=== PATIENT | male | born 2005 | race African-American/Black ===

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

== ENCOUNTER 2024-08-17 13:20 | Emergency (ER) | payer OTHER, SELFPAY ==
--- OUTSIDE RECORDS SUMMARY | 2024-08-17 13:23 | XMS_ITS | Continuity of Care Document ---
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 It does not include entries that were removed or entered in error. Problem Status Onset Date Problem Type Date of Resolution Comments Source No Known Problems Active Condition 5C-375 [facility] Medications Combined list of outpatient medications from Department of Defense and Veterans Affairs facilities.Medications provided include 1) outpatient medications from the last 15 months, and 2) patient-reported medications. Medication Details Route Status Patient Instructions Prescription Expires Prescription Number Last Dispense Date Ordering Provider Order Date Order Qty Source No Known Medications No Known Medicati ons complet ed 8224R-1 26 [facility] Immunizations Combined list of available immunizations from the Department of Defense and Veterans Affairs facilities. Immunization Series Date Given Administered By Site Reaction Lot Number CVX Code Drug Academic Program Specialist Status Comments Source varicella virus vaccine 2023 LUIS EZ Arm, left upper [id number] 21 [employer] Inc complet ed varicella virus vaccine 05/26/23 Given 0117A-A F-ASU-5 9 [facility] [place] varicella virus vaccine 2023 BERNARDA Hopkins t Arm [id number] 21 [employer] complet ed varicella virus vaccine 04/14/23 Given 0117A-A F-ASU-5 [facility] [place] poliovirus vaccine, inactivated 2023 DONALDBCOBB Shoul emery, right (delt oid) [id number] 10 sanofi pasteur complet ed polioviru s vaccine, inactivat ed 04/10/23 Given 0117A-A F-ASU-5 9 [facility] [place] tetanus, diphtheria, acellular pertu is 2023 DONALDBCOBB Shoul emery, right (delt oid) [id number] [employer] complet ed tetanus, diphtheri a, acellular pertussis 04/10/23 Given 0117A-A F-ASU-5 [facility] [place] meningococcal conjugate vaccine 2023 DONALDBCOBB Shoul emery, left (delt oid) [id number] GlaxoSmithK[employer] ne complet ed meningoco ccal conjugate vaccine 04/10/23 Given 0117A-A F-ASU-5 [facility] [place] influenza virus vaccine, inactivated 2023 DONALDBCOBB Shoul emery, left (delt oid) [id number] 150 [employer], A [employer] complet ed influenza virus vaccine, inactivat ed 04/10/23 Given 0117A-A F-ASU-5 [facility] [place] [facility] adenovirus vaccine, live 2023 DONALDBCOBB [id number] 143 [employer]eva [employer] [facility] complet ed adenoviru s vaccine, live 04/10/23 Given 0117A-A F-ASU-5 [facility] [place] [facility] influenza, seasonal, injectable 2013 REINHOLDTHERB OTH [id number] complet ed Result Comment: Route: Intramusc ular Manufactu rer: Novartis Pharmaceu tical Jim 0117A-A F-ASU-5 [facility] [place] [facility] Results Combined list of recent chemistry, hematology and other laboratory results from Department of Defense and Veterans Affairs, ranging from 15 months to all on record, depending upon the facility. Order Name Results Value Reference Range Date Interpretation Specimen Comments Source Blood Bank ABO/Rh Type O POS 04/10 0117A-A F-ASU-5 [facility] [place] Immunolog y/Serolog y Hep A Ab Positive 3 *ABN* (04/09/23 3:46 PM) 04/09 A Interpretiv e Data: 20 FEB 2017 Notice: Samples for thes asssay should not be taken from patients receiving therapy with high biotin doses (i.e. > 5 mg/day) until 8 hours following last biotin administrat ion. POSITIVE: Indicates prior or acute infection, or immunizatio n to Hepatitis A. NEGATIVE: Indicates susceptibil ity to Hepatitis A infection. Updated Test Method [id number]. 0117A-A F-ASU-5 9 [facility] Immunolog y/Serolog y Hep B Surface Ab Positive 2 *ABN* (04/09/23 3:46 PM) 04/09 A Interpretiv e Data: EXPECTED RANGE: Negative unless previous exposure or Heptavax prophylaxis A POSITIVE Anti-HBs indicates previous exposure to the virus or acquired immunity through Heptavax prophylaxis . An INDETERMINA TE result should be further accessed by associated risk factors and the use of additional diagnostic information , or another sample may be collected and tested. 0117A-A F-ASU-5 [facility] Immunolog y/Serolog y Mumps IgG Antibody Immune 8 (04/09/23 3:46 PM) 04/09 N Interpretiv e Data: Interpretiv e Data: Expected Results: Immune or Non-Immune A definitive diagnosis should not be based on the results of a single diagnostic method but should only be made by the physician after all clinical and laboratory findings have been evaluated. Methodology : multiplex flow immunoassay 7A-A F-ASU-5 [facility] Immunolog y/Serolog y Rubeola IgG Antibody Immune 7 (04/09/23 3:46 PM) 04/09 N Interpretiv e Data: Interpretiv e Data: Expected Results: Immune or Non-Immune A definitive diagnosis should not be based on the results of a single diagnostic method but should only be made by the physician after all clinical and laboratory findings have been evaluated. Methodology : multiplex flow immunoassay 7A-A F-ASU-5 [facility] Immunolog y/Serolog y VZV IgG Scrn Non-Immu ne 1 *ABN* (04/09/23 3:46 PM) 04/09 A Interpretiv e Data: Interpretiv e Data: Expected Results: Immune or Non-Immune A definitive diagnosis should not be based on the results of a single diagnostic method but should only be made by the physician after all clinical and laboratory findings have been evaluated. Methodology : multiplex flow immunoassay 0117A-A F-ASU-5 [facility] Immunolog y/Serolog y Rubella IgG Antibody Immune 9 (04/09/23 3:46 PM) 04/09 N Interpretiv e Data: Interpretiv e Data: Expected Results: Immune or Non-Immune A definitive diagnosis should not be based on the results of a single diagnostic method but should only be made by the physician after all clinical and laboratory findings have been evaluated. Methodology : multiplex flow immunoassay 0117A-A F-ASU-5 9th [facility] Infectiou s Disease HIV-1/O/2 Non-Reac tive 6 (04/09/23 3:46 PM) 04/09 N Interpretiv e Data: INTERPRETAT ION: This method is a screening procedure for the detection of HIV p24 Antigen and Antibodies to HIV-1, including Group O, and/or HIV-2. NON-REACTIV E: HIV-1 antigen and HIV-1 / HIV-2 antibodies were not detected. No laboratory evidence of HIV infection. A negative test result does not exclude the possibility of exposure to or infection with HIV. HIV antibodies and/or p24 antigen may be undetectabl e in some stages of the infection and in some clinical conditions. If acute HIV infection is suspected, consider submitting another specimen to a reference laboratory for HIV-1 RNA. SCREEN REACTIVE - CONFIRMATIO N TO FOLLOW: Possible presence of HIV-1antibo dies, HIV-2 antibodies and/or HIV-1 p24 antigen. Specimen will reflex to the confirmatio n testing that fulfills the Center for Disease Control and Prevention' s HIV diagnostic algorithm. Refer to [facility] Lab Guide for additional information : [email or web address]/ [email or web address] x Testing performed by [employer] [facility]. 5600A-U [facility] Hematolog y Sickle Cell Screen Negative 4 *NA* (04/09/23 3:46 PM) 04/09 Interpretiv e Data: Expected Normal Range is Negative. Testing was performed using reagent manufacture d for manual Sickle Cell testing on the Neft[employer] Platform. This test was developed and its performance characteris tics determined by [facility]. It has not been cleared or approved by the FDA. The laboratory is regulated under CLIA as qualified to perform high complexity testing. This test is used for clinical purposes. It should not be regarded as investigati onal or for research. Confirmatio n of all positive results are followed by Hemoglobin Electrophor esis. 0117A-A F-ASU-5 9th [facility] Vannacellkatie eous Sendouts DNA Sample Collected? Yes (04/09/23 3:46 PM) 04/09 N 0117A-A F-ASU-5 9th [facility] Chemistry G6PD 11.3 unit/gHb 04/09 N Interpretiv e Data: All persons below our lower limit of 7 are considered Deficient .G6PD reported value is a calculation based on G6PD and hemoglobin values. Values greater than the upper limit of our reference range are considered Normal in accordance with guidance from the Ramsey Textbook on Clinical Chemistry, which states that values greater than the upper limit of the reference range are encountered in any condition associated with younger than normal RBC's (as in hemolytic anemias not due to G6PD deficiency) , but are of no clinical significanc e. Certain drugs and other substances are known to influence circulating levels of G6PD. Reticulocyt es havehigher G6PD levels than mature erythrocyte s, so samples should not be collected after a severe hemolytic crisis. Copper completely inhibits G6PD at a concentrati on of 100 umol/L, and sulfate ions (0.005 mol/L) decrease observed levels of G6PD activity. This test was developed and its performance characteris tics evaluated by [facility] Reference Chemistry Laboratory. It has not been cleared or approved by the U.S. Food Drug Administrat ion (FDA). FDA does not require this test to go through premarket FDA review.The test isused for clinical purposes and should not be regarded as investigati onal or for research. This laboratory is certified under the Clinical Laboratory Improvement Amendments of 1988 (CLIA) as qualified to perform high complexity clinical laboratory testing. 0109A-A [facility] Miscellan eous Sendouts Repository Sample Received (04/09/23 3:46 PM) 04/09 N 5600A-U [facility] Vital Signs Combined list of inpatient and outpatient Vital Signs from Department of Defense and Veterans Affairs, ranging from 12 months to all on record, depending upon the facility. Vital Sign Value Date Comments Source Peripheral Pulse Rate 60 bpm 08/14/2022 13:25:[address] [place] [address] Peripheral Pulse Rate 52 bpm 08/14/2022 11:16:[address] [place] [address] Systolic Blood Pressure 125 mm[Hg] 08/14/2022 11:16:[address] [place] [address] Diastolic Blood Pressure 64 mm[Hg] 08/14/2022 11:16:[address] [place] [address] Encounters Combined list of: 1) Encounters from [facility] facilities going backup to the last 18 months, not all [place] inpatient encounters are included; 2) Encounters from the [facility] facilities going backup to 280 months. Location Location Details Encounter Type Encounter Number Reason For Visit Attending Provider ADM Date DC Date Status Disposition Source 8224R-126 [facility] [id number] RENÉE CAMARGO 09/14 Discharge Disposition: Home or Self Care 8224R-1 26 [facility] 0055C-375 [facility] [id number] ABEL KEY 09/15 Discharge Disposition: Home or Self Care 0055C-3 [facility] Procedures Combined list of: 1) Procedures from [facility] facilities going back up to thelast 18 months, not all [place] non-surgical procedures are included; 2) All procedures from the [facility] facilities. Procedure Procedure Type Code Date Perfomer Comments Sourc e No data available for this section Ambulatory P harmacy Social History Combined list of available smoking, tobacco, and other social history from [facility] and [facility] facilities. Social History Type Response Date Comment Sourc e Sexual Orientation Ambula tory Pharmacy Gender identity Ambulator y Pharmacy Sex Representation Male (finding) Un known Organization Assessment and Plan Combined list of future care activities from [facility] and [facility] facilities (e.g., assessment and plan notes, appointments, orders, and referrals). Additional future care activities may be listed in the Plan of Care section. 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 Patient s PHAQ responses suggest there WERE NO Priority items requiring immediate action. Retention Waiver: No Profile: No Medications: Medication List Active Medications No Active Medications Found Medications Inactivated in the Last 72 Hours No medications found. 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 NO Completed 09/15/2023 VA Disability Rating: No If yes please update below. Commercial Correspondent Note: Member reports that he is in very good health with no pain , no medications and ne new history to repot. 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 Member has nothing more to report. Report complete. PHAQ ready for PCM review and signature. Addendum by RENÉE GOOD on September 15, 2023 14:09 CDT PHAQ Completed in [facility], [id number] c opied below. Diagnosis is [id number] Medication reconciliation was accomplished. IMR requirements checked in [facility] (all GREEN) but is due dental General c sandro performed i n chart review. Denies SI/HI. All questions answered. Member has no n on emergent positive responses on P BEE. I t has not inhibited member from performing their duties. Member is assumed fit for duty. Denies any other acute or chronic health concerns currently. 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 Recommend f/u with PCM for any new or ongoing m edical concerns. Member can: 1) deploy 2) perform the duties of the assigned [employer], 3) meet retention medical standards, 4) complete the fitness assessment (FA), no h/o airborne exposure to qualify for X08.8 COPY OF PHAQ2 [id number]: A NNUAL PERIODIC HEALTH ASSESSMENT I. 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 Last Name: DAVID 2. First Name: CLARISSA 3. Middle Name: RENÉE 4. Assessment Date: 5. : 6. Age: 18 7. Gender: M 8. [employer] ID Number: [id number] 9. Service Branch: [employer] 10. 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 Unit Name: [address] [employer] 14. Duty Station/Location: [place] 15. C: [id number] 16. Is this your first Periodic Health Assessment (PHA)?: Y 17. Are you enrolled in a secure messaging system with your health care provider?: 18. Current contact information: Preferred Method: DSN Phone DSN: [id number] Day Time Phone: [phone] Night Time Phone: [phone] Email 1: [email or web address] Email 2: [email or web address] Address: [address] [place] [address] City: [place] State: [place] Zip Code: [address] 19. Point of contact who can always reach you: Name: Wilbert Kamara Phone 1: [phone] Phone 2: EMAIL: Address: [address] [place] [address] City: [place] State: [place] Zip Code: [address] II. DEPLOYMENT INFORMATION (DEP) 1. [ 0 ] Total number of deployments in the PAST 5 YEARS 4. [ N ] Are you going to deploy within the NEXT 120 DAYS? III. 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 [ No ] Does your specialty require an operational duty physical exam? 4. [ No ] Are you currently enrolled in a medical surveillance/occupational health program?: No IV. MEDICAL CONDITIONS (CARLY): 1. Since your last PHA, have you experienced any of the following health conditions, and if so, what is your status? [ ] Conditions with no medical care [ Asthma ] Conditions with medical care, but no longer under treatment [ ] Conditions with medical care, and NOW under treatment 2. Since your last PHA, have you experienced any of the following health conditions, and if so, what is your status? [ ] Conditions with no medical care [ ] Conditions with medical care, but no longer under treatment [ ] Conditions with medical care, and NOW under treatment 3. For any condition marked YES in question 1 or 2, are you currently on any profile or limited duty for that condition? [ ] Conditions 4. [ No ] Have you been based or stationed at a location where an open burn pit was used? 5. [ No ] Have you been exposed to toxic airborne chemicals or other airborne contaminants? 8. Have you had any surgery since your last PHA?: No 10.a. [ No ] Since your last PHA, has a health care provider recommended surgery(s) that you have not had? 11.a. [ No ] Do you currently require hearing aids, special medical supplies, CPAP, adaptive equipment, assistive technology devices, and/or other special accommodations? 12.a. [ No ] Do you have a waiver or profile for any part of your Service's physical fitness test? 13.a. [ No ] Do you have any problems wearing a gas mask, ballistic helmet, body armor, and/or chemical/biological protective garments? 14.a. [ No ] Have you ever been told by a health care provider that you SHOULD NOT receive an immunization for medical reasons? 15.a. [ No ] Do you have a permanent profile or an Assignment Limitation Code C? 16.a. [ No ] Are you on a temporary profile or limited duty? 17. [ 0 ] During the PAST 2 years, how many times have you been placed on a temporary profile or on limited duty? V. INDIVIDUAL MEDICAL READINESS (IMR) 1. [ No ] Do you have any allergies? 3. [ Not required ] Do you have red medical warning dog tags? 4. [ No ] Do you wear corrective lenses? . BEHAVIORAL HEALTH (MHA) 1. a. [ None ] Over the PAST MONTH, what major life stressors have you experienced that are a cause of significant concern or make it difficult for you to do your work, take care of things at home, or get along with other people (for example, serious conflicts with others, relationship problems, or a legal, disciplinary or financial problem)? 2. a. [ No ] In the PAST YEAR did you receive care for any mental health condition or concern such as, but not limited to post traumatic stress disorder (PTSD), depression, anxiety disorder, alcohol abuse or substance abuse? 3. [ None ] What prescription or over-the counter medications (including herbals/supplements) for sleep, pain, combat stress, or a mental health problem are you CURRENTLY taking? 4. a. [ No ] In the past 12 months, have you gambled? 5. a. [ Never ] How often do you have a drink containing alcohol? 6. Have you ever had any experience that was so frightening, horrible, or upsetting that in the PAST MONTH, you: 6. a. [ No ] Have had nightmares about it or thought about it when you did not want to? 6. b. [ No ] Tried hard not to think about it or went out of your way to avoid situations that remind you of it? 6. c. [ No ] Were constantly on guard, watchful or easily startled? 6. d. [ No ] [place] numb or detached from others, activities, or your surroundings? 6. e. [ Not answered ] [place] guilt or unable to stop blaming yourself or others for the event(s) or any problems the event(s) may have caused? 7. Over the LAST 2 WEEKS, how often have you been bothered by the following problems? 7. a. [ Not at all ] Little interest or pleasure in doing things 7. b. [ Not at all ] Feeling down, depressed, or hopeless 8. [ No ] Would you like to schedule an appointment with a health care provider to discuss any health concern(s)? 9. [ No ] Are you interested in receiving information or assistance for a stress, emotional or alcohol concern? 10. [ No ] Are you interested in receiving assistance for a family or relationship concern? 11. [ No ] Would you like to schedule a visit with a cytology supervisor, mental health care provider, or a community support counselor? VII. FAMILY HISTORY AND LIFESTYLE (LIF) 1. [ Excellent ] Overall, how would you rate your health during the PAST MONTH? 2. [ None/Don't Know ] Member indicates that family members have the following problems 6. [ Yes ] I participate in moderate intensity physical activites at least 2.5 hours, or a combination of moderate and vigorous aerobic activites, for at least 75 minutes per week. 7. In a typical week, I do physical activities specifically designed to STRENGTHEN my muscles: [ 6 ] Day(s) per week 8. [ None ] What prescriptions or afqz-slq-wqizfnj medications are you CURRENTLY taking for health problems on a ROUTINE BASIS? 9. Which of the following products have you taken since your last PHA: Protein Supplements/Creatine: Once a day Performance Enhancers/Pre-Workout Products: Once a day Energy Shots, NOT including energy drinks: Less than once a month Multi-Vitamins: Once a day Individual Vitamins or Minerals: Once a day Vitamin D: Less than once a month 11. Think about the PAST 30 DAYS. How often did you eat/drink the following foods/beverages? [ 1 serving per day ] Fruits [ 1 serving per day ] Vegetables [ 1 serving per day ] Starchy Vegetables [ 3 or more servings per day ] Whole Grains [ 3 or more servings per day ] Dairy and Calcium Containing Foods [ 3 to 6 servings per week ] Fish [ 3 or more servings per day ] Lean Protein [ 1 serving per day ] Sugar-Sweetened Beverages 12. [ Yes ] Have you had a cholesterol check by a health healthcare advisory services manager within the PAST 5 YEARS? 13.a. In the PAST 30 DAYS, which of the following products have you used on at least one day? None 15. Which of the following best describes your past tobacco use? I have never used tobacco products. 16. [ No ] Are you regularly exposed to secondhand smoke? 17. [ 7 to 9 hours ] During the LAST 2 WEEKS, how many hours of sleep did you get on most days? 18. [ No ] During the LAST 2 WEEKS, have you felt impaired or unable to adequately perform due to sleepiness or poor quality sleep? 19. [ No ] Have you had any unexplained weight loss or gain since your last PHA? 20. Member is at risk for sexually transmitted infections. 21. [ No ] Have you had a syphillis, chlamydia, and gonorrhea test since your last PHA? 22. Since your last PHA, what, if anything, have you and your partner used to keep from getting ? [ control pills, Emergency contraception, Condoms, Withdrawal ] I am actively taking steps to prevent , including 23. [ No ] In the last year, have you or your partner had a scare, where you were not trying to get but were worried enough to use a home test? IX. RESERVE COMPONENT (RES) 1. [ No ] Do you have an injury, illness, Or disease which was incurred or aggravated while in a duty status since your last PHA? 4. [ Yes - and Other health insurance ] Are you currently coverered under a health insurance policy? 5.a. [No, I have never applied for Worker's Compensation ] Do you have any current physical or mental health limitations related to a Worker's Compensation claim? 6. [ No ] Have you applied for or have you received a VA disability rating? X. OTHER MEDICAL (OTH) 1. [ 0 ] Rate the amount of pain you have had, on average, over the PAST 24 HOURS 3. [ No ] Since your last PHA, have you received care or treatment for any medical and/or mental health condition(s) from a civilian or non- facility? 5. Member acknowledged responsibility for reporting health issues. 7. [ No ] Woud you like to schedule an appointment with a health care provider to discuss any health concerns? XI. SEPARATION AND [facility] 1. 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 PART B. RECORD REVIEW AND RECOMMENDATIONS I. RECORD REVIEWER INFORMATION 1. Last Name: RANDA 2. First Name: SCOTTY 3. Middle Name: KARI 4. Service Branch: [employer] 5. 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 EMAIL: [email or web address] 8. Facility: [address] [facility] 9. Unit: [address] [facility] 10. Address: [address] [facility] 11. State: [place] 12. Zip Code: [address] 13. 14. Date Record Review: II. MEDICAL SCREENING 1. 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 [ 6 feet 1 inches Date: ] multiple launch rocket system crewmember's most recently documented height 3. [ 215 pounds Date: ] multiple launch rocket system crewmember's most recently documented weight 4. [ 125/64 Date: ] multiple launch rocket system crewmember's most recently documented blood pressure reading 5. [ No ] Does the multiple launch rocket system crewmember have a history of abnormal blood pressure since their last PHA? 6. [ Yes ] Does the multiple launch rocket system crewmember have a laboratory test of sickle cell trait documented in their permanent medical record? 7. [ No Cholesterol Test Documented ] What is the date of the multiple launch rocket system crewmember's most recently documented cholesterol test? 9. 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 [ No ] Is there a discrepancy between the active medication record review and the multiple launch rocket system crewmember's self-reported list of medications? 11. [ No Outside Care Documented ] List documented significant care the multiple launch rocket system crewmember has received since their last PHA from a provider OUTSIDE the Health System 12. [ No ] Is there a discrepancy between the multiple launch rocket system crewmember's list of OUTSIDE care (from OT5), and the OUTSIDE care found in the record? 13. [ No Inside Care Documented ] List documented significant care the multiple launch rocket system crewmember has received since their last PHA from a provider INSIDE the Health System 15. [ Not Answered ] Confirm that vaccine exemptions are listed in the medical record for each vaccine listed IV. FAMILY HISTORY AND LIFESTYLE 1. [ Yes ] Does the [id number] reflect the multiple launch rocket system crewmember's reported family history? 2. [ No ] Is there a record of the multiple launch rocket system crewmember receiving a syphillis, chlamydia and gonorrhea test since their last PHA? VII. INDIVIDUAL MEDICAL READINESS 1. [ No ] Does the multiple launch rocket system crewmember have an Assignment Limitation Code C? 3. [ No Dental Exam Documented ] Most recently documented dental exam 4. [ Yes ] Is the multiple launch rocket system crewmember current on all required immunizations in the immunization tracking system? 6. Does the multiple launch rocket system crewmember have the following laboratory tests documented in their permanent medical record? [ Yes ] HIV test within the PAST 24 months [ Yes ] G6PD results on file [ Yes ] Blood type and Rh on file [ Yes ] DNA test on file IX. ADDITIONAL RECORD REVIEWER COMMENTS 1. This record review does NOT have a need for provider notification or referral.2. Additional comments about this record review that need to be forwarded to the Health Chiller Operator completing PART C: Member reports that he is in very good health with no pain , no medications and ne new history to repot. 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 Member has nothing more to report. Report complete. Date Record Review Completed: PART C. HEALTH CARE PROVIDER I. MENTAL HEALTH ASSESSMENT (MHA) PROVIDER INFORMATION 1. Last Name: SHANNON 2. First Name: SATURNINO 3. Middle Name: Jodi 4. 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 EMAIL: [email or web address] 8. Facility: [facility] 9. Unit: [facility] 10. Address: [address] [place] [address]. State: [place] 12. Zip Code: [address] 13. 14. Date HCP Review initiated: 1. Member marked that they did not have a concern or a difficulty with a major life stressor. 2. Address concerns identified on member questions 2 and 3. History of mental health care: N/A Member's response: Provider's comments: Medications: N/A Member's response: Provider's comments: 3. Member's AUDIT-C screening score was 0. (nothing required) 4. Member did not fernando yes on two or more of questions 6a through 6e. 5. Member did not fernando More than half the days or nearly every day on question 7a or 7b. 6. Suicide risk evaluation. 6. a. Ask: Over the past month, have you wished you were or wished you could go to sleep and not wake up?: No 6. b. Ask: Have you actually had any thoughts of killing yourself?: No 6. f. 1. Ask: In you lifetime, have you done anything, started to do anything, or prepared to do anything to end your life?: No 6. g. Further risk assessment comments: 7. Member states that they have not had thoughts or concerns over the past month that they might hurt or lose control with someone. 9. Summary of Provider's identified concerns needing referrals: None 11. Comments: 13. Supplemental services recommended/information provided: [facility] Date A Certified: III. PERIODIC HEALTH ASSESSMENT (PHA) PROVIDER INFORMATION 1. Last Name: LATISHA 2. First Name: RENÉE 3. Middle Name: Darion 4. Service Branch: [employer] 5. Status: [facility] 6. Title: Physician (DO MARGO) 7. EMAIL: [email or web address] 8. Facility: [address] [facility] 9. Unit: [address] [facility] 10. Address: [address] [place] [address] 11. State: [place] 12. Zip Code: [address] 13. Phone: [phone] 14. Date HCP Review initiated: IV. PERIODIC HEALTH ASSESSMENT PROVIDER RECOMMENDATIONS and REFERRALS 1. Provider concerns with this assessment: No issues or concerns identified V. SUMMARY AND COMMENTS 1. Additional information summarizing findings during the multiple launch rocket system crewmember assessment: 2. Provider Comments: . INDIVIDUAL MEDICAL READINESS DISPOSITION DETERMINATION CARLY: Ready DEN: Not Ready IMM: Ready LAB: Ready ME: Ready IMR Status: Partially Medically Ready VII. SERVICE MEDICAL DEPLOYABILITY EVALUATION INDICATED Based on your review of all documentation, is the multiple launch rocket system crewmember medically deployable without limitations? Reference [facility] 6490.07 Yes (multiple launch rocket system crewmember DOES NOT currently have a medical condition that limits deployability) Date PHA Completed: END OF [id number] REPORT PROVIDER: Renée Good [place], [facility] , S Chief, Aerospace Medicine, 126[facility] [email or web address] [facility] Email: 1 [email or web address] COMM: [phone] DSN:[id number] FAX: [phone] Extracted from:Title: [id number] Author: CAROLYN HINSON Date: 04/16/23 1. ARE YOU CURRENTLY: a. B eing treated for an ear infection? No 2. H AVE YOU EVER HAD ANY OF THE FOLLOWING?: a. M eniere s Syndrome, Labyrinthitis, or other chronic disease of the inner ear? No b. R ecurring vertigo in the last year? No c. R ecurring ear infections in last 2 years? No d. R uptured eardrum in the last 2 years? No e. E ar tubes in the last 2 years? No f. Surgery in ear canal, middle or inner ear? No g. U sed a hearing aid or hearing device? No Extracted from:Title: Education Note Author: BOBBY GAMBOA Date: 08/14/22 08/17/2024 [id number] MDG Assessment and Plan Extracted from:Title : PHAQ Review Author: SCOTTY TOLENTINO Date: 09/15/23 [facility] accredited pharmacy technician has completed annual PHA record review on 09/15/2023. Patient s PHAQ responses suggest there WERE NO Priority items requiring immediate action. Retention Waiver: No Profile: No Medications: Medication List Active Medications No Active Medications Found Medications Inactivated in the Last 72 Hours No medications found. 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 NO Completed 09/15/2023 VA Disability Rating: No If yes please update below. Commercial Correspondent Note: Member reports that he is in very good health with no pain , no medications and ne new history to repot. 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 Member has nothing more to report. Report complete. PHAQ ready for PCM review and signature. Addendum by RENÉE GOOD on September 15, 2023 14:09 CDT PHAQ Completed in [facility], [id number] c opied below. Diagnosis is [id number] Medication reconciliation was accomplished. IMR requirements checked in [facility] (all GREEN) but is due dental General c sandro performed i n chart review. Denies SI/HI. All questions answered. Member has no n on emergent positive responses on P BEE. I t has not inhibited member from performing their duties. Member is assumed fit for duty. Denies any other acute or chronic health concerns currently. Mental health resources to include the mental health clinic, OP, Rug Drying Machine Operator, and [facility] discussed with patient v ia review. Recommend f/u with PCM for any new or ongoing m edical concerns. Member can: 1) deploy 2) perform the duties of the assigned [employer], 3) meet retention medical standards, 4) complete the fitness assessment (FA), no h/o airborne exposure to qualify for X08.8 COPY OF PHAQ2 [id number]: A NNUAL PERIODIC HEALTH ASSESSMENT I. 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 Last Name: DAVID 2. First Name: CLARISSA 3. Middle Name: RENÉE 4. Assessment Date: 5. : 6. Age: 18 7. Gender: M 8. [employer] ID Number: [id number] 9. Service Branch: [employer] 10. 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 Unit Name: [facility] 14. Duty Station/Location: [place] 15. C: [id number] 16. Is this your first Periodic Health Assessment (PHA)?: Y 17. Are you enrolled in a secure messaging system with your health care provider?: 18. Current contact information: Preferred Method: DSN Phone DSN: [id number] Day Time Phone: [phone] Night Time Phone: [phone] Email 1: [email or web address] Email 2: [email or web address] Address: [address] [place] [address]: [facility]: [place] Zip Code: [address] 19. Point of contact who can always reach you: Name: Wilbert Kamara Phone 1: [phone] Phone 2: EMAIL: Address: [address] [place] [address]: [facility]: [place] Zip Code: [address] II. DEPLOYMENT INFORMATION (DEP) 1. [ 0 ] Total number of deployments in the PAST 5 YEARS 4. [ N ] Are you going to deploy within the NEXT 120 DAYS? III. 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 [ No ] Does your specialty require an operational duty physical exam? 4. [ No ] Are you currently enrolled in a medical surveillance/occupational health program?: No IV. MEDICAL CONDITIONS (CARLY): 1. Since your last PHA, have you experienced any of the following health conditions, and if so, what is your status? [ ] Conditions with no medical care [ Asthma ] Conditions with medical care, but no longer under treatment [ ] Conditions with medical care, and NOW under treatment 2. Since your last PHA, have you experienced any of the following health conditions, and if so, what is your status? [ ] Conditions with no medical care [ ] Conditions with medical care, but no longer under treatment [ ] Conditions with medical care, and NOW under treatment 3. For any condition marked YES in question 1 or 2, are you currently on any profile or limited duty for that condition? [ ] Conditions 4. [ No ] Have you been based or stationed at a location where an open burn pit was used? 5. [ No ] Have you been exposed to toxic airborne chemicals or other airborne contaminants? 8. Have you had any surgery since your last PHA?: No 10.a. [ No ] Since your last PHA, has a health care provider recommended surgery(s) that you have not had? 11.a. [ No ] Do you currently require hearing aids, special medical supplies, CPAP, adaptive equipment, assistive technology devices, and/or other special accommodations? 12.a. [ No ] Do you have a waiver or profile for any part of your Service's physical fitness test? 13.a. [ No ] Do you have any problems wearing a gas mask, ballistic helmet, body armor, and/or chemical/biological protective garments? 14.a. [ No ] Have you ever been told by a health care provider that you SHOULD NOT receive an immunization for medical reasons? 15.a. [ No ] Do you have a permanent profile or an Assignment Limitation Code C? 16.a. [ No ] Are you on a temporary profile or limited duty? 17. [ 0 ] During the PAST 2 years, how many times have you been placed on a temporary profile or on limited duty? V. INDIVIDUAL MEDICAL READINESS (IMR) 1. [ No ] Do you have any allergies? 3. [ Not required ] Do you have red medical warning dog tags? 4. [ No ] Do you wear corrective lenses? . BEHAVIORAL HEALTH (MHA) 1. a. [ None ] Over the PAST MONTH, what major life stressors have you experienced that are a cause of significant concern or make it difficult for you to do your work, take care of things at home, or get along with other people (for example, serious conflicts with others, relationship problems, or a legal, disciplinary or financial problem)? 2. a. [ No ] In the PAST YEAR did you receive care for any mental health condition or concern such as, but not limited to post traumatic stress disorder (PTSD), depression, anxiety disorder, alcohol abuse or substance abuse? 3. [ None ] What prescription or over-the counter medications (including herbals/supplements) for sleep, pain, combat stress, or a mental health problem are you CURRENTLY taking? 4. a. [ No ] In the past 12 months, have you gambled? 5. a. [ Never ] How often do you have a drink containing alcohol? 6. Have you ever had any experience that was so frightening, horrible, or upsetting that in the PAST MONTH, you: 6. a. [ No ] Have had nightmares about it or thought about it when you did not want to? 6. b. [ No ] Tried hard not to think about it or went out of your way to avoid situations that remind you of it? 6. c. [ No ] Were constantly on guard, watchful or easily startled? 6. d. [ No ] [place] numb or detached from others, activities, or your surroundings? 6. e. [ Not answered ] [place] guilt or unable to stop blaming yourself or others for the event(s) or any problems the event(s) may have caused? 7. Over the LAST 2 WEEKS, how often have you been bothered by the following problems? 7. a. [ Not at all ] Little interest or pleasure in doing things 7. b. [ Not at all ] Feeling down, depressed, or hopeless 8. [ No ] Would you like to schedule an appointment with a health care provider to discuss any health concern(s)? 9. [ No ] Are you interested in receiving information or assistance for a stress, emotional or alcohol concern? 10. [ No ] Are you interested in receiving assistance for a family or relationship concern? 11. [ No ] Would you like to schedule a visit with a cytology supervisor, mental health care provider, or a community support counselor? VII. FAMILY HISTORY AND LIFESTYLE (LIF) 1. [ Excellent ] Overall, how would you rate your health during the PAST MONTH? 2. [ None/Don't Know ] Member indicates that family members have the following problems 6. [ Yes ] I participate in moderate intensity physical activites at least 2.5 hours, or a combination of moderate and vigorous aerobic activites, for at least 75 minutes per week. 7. In a typical week, I do physical activities specifically designed to STRENGTHEN my muscles: [ 6 ] Day(s) per week 8. [ None ] What prescriptions or eptl-syj-hustttb medications are you CURRENTLY taking for health problems on a ROUTINE BASIS? 9. Which of the following products have you taken since your last PHA: Protein Supplements/Creatine: Once a day Performance Enhancers/Pre-Workout Products: Once a day Energy Shots, NOT including energy drinks: Less than once a month Multi-Vitamins: Once a day Individual Vitamins or Minerals: Once a day Vitamin D: Less than once a month 11. Think about the PAST 30 DAYS. How often did you eat/drink the following foods/beverages? [ 1 serving per day ] Fruits [ 1 serving per day ] Vegetables [ 1 serving per day ] Starchy Vegetables [ 3 or more servings per day ] Whole Grains [ 3 or more servings per day ] Dairy and Calcium Containing Foods [ 3 to 6 servings per week ] Fish [ 3 or more servings per day ] Lean Protein [ 1 serving per day ] Sugar-Sweetened Beverages 12. [ Yes ] Have you had a cholesterol check by a health healthcare advisory services manager within the PAST 5 YEARS? 13.a. In the PAST 30 DAYS, which of the following products have you used on at least one day? None 15. Which of the following best describes your past tobacco use? I have never used tobacco products. 16. [ No ] Are you regularly exposed to secondhand smoke? 17. [ 7 to 9 hours ] During the LAST 2 WEEKS, how many hours of sleep did you get on most days? 18. [ No ] During the LAST 2 WEEKS, have you felt impaired or unable to adequately perform due to sleepiness or poor quality sleep? 19. [ No ] Have you had any unexplained weight loss or gain since your last PHA? 20. Member is at risk for sexually transmitted infections. 21. [ No ] Have you had a syphillis, chlamydia, and gonorrhea test since your last PHA? 22. Since your last PHA, what, if anything, have you and your partner used to keep from getting ? [ control pills, Emergency contraception, Condoms, Withdrawal ] I am actively taking steps to prevent , including 23. [ No ] In the last year, have you or your partner had a scare, where you were not trying to get but were worried enough to use a home test? IX. RESERVE COMPONENT (RES) 1. [ No ] Do you have an injury, illness, Or disease which was incurred or aggravated while in a duty status since your last PHA? 4. [ Yes - and Other health insurance ] Are you currently coverered under a health insurance policy? 5.a. [No, I have never applied for Worker's Compensation ] Do you have any current physical or mental health limitations related to a Worker's Compensation claim? 6. [ No ] Have you applied for or have you received a VA disability rating? X. OTHER MEDICAL (OTH) 1. [ 0 ] Rate the amount of pain you have had, on average, over the PAST 24 HOURS 3. [ No ] Since your last PHA, have you received care or treatment for any medical and/or mental health condition(s) from a civilian or non- facility? 5. Member acknowledged responsibility for reporting health issues. 7. [ No ] Woud you like to schedule an appointment with a health care provider to discuss any health concerns? XI. SEPARATION AND [facility] 1. [ No ] Are you planning to separate or retire within the next year from Active Duty or [place] Duty (activated for greater than 30 continuous days) OR do you intend to file a claim for disability compensation with the Veterans Benefits Administration? PART B. RECORD REVIEW AND RECOMMENDATIONS I. RECORD REVIEWER INFORMATION 1. Last Name: RANDA 2. First Name: SCOTTY 3. Middle Name: KARI 4. Service Branch: [employer] 5. 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 EMAIL: [email or web address] 8. Facility: [address] [facility] 9. Unit: [address] [place] [address] 10. Address: [address] [place] [address] 11. State: [place] 12. Zip Code: [address] 13. 14. Date Record Review: II. MEDICAL SCREENING 1. 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 [ 6 feet 1 inches Date: ] multiple launch rocket system crewmember's most recently documented height 3. [ 215 pounds Date: ] multiple launch rocket system crewmember's most recently documented weight 4. [ 125/64 Date: ] multiple launch rocket system crewmember's most recently documented blood pressure reading 5. [ No ] Does the multiple launch rocket system crewmember have a history of abnormal blood pressure since their last PHA? 6. [ Yes ] Does the multiple launch rocket system crewmember have a laboratory test of sickle cell trait documented in their permanent medical record? 7. [ No Cholesterol Test Documented ] What is the date of the multiple launch rocket system crewmember's most recently documented cholesterol test? 9. 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 [ No ] Is there a discrepancy between the active medication record review and the multiple launch rocket system crewmember's self-reported list of medications? 11. [ No Outside Care Documented ] List documented significant care the multiple launch rocket system crewmember has received since their last PHA from a provider OUTSIDE the Health System 12. [ No ] Is there a discrepancy between the multiple launch rocket system crewmember's list of OUTSIDE care (from OT5), and the OUTSIDE care found in the record? 13. [ No Inside Care Documented ] List documented significant care the multiple launch rocket system crewmember has received since their last PHA from a provider INSIDE the Health System 15. [ Not Answered ] Confirm that vaccine exemptions are listed in the medical record for each vaccine listed IV. FAMILY HISTORY AND LIFESTYLE 1. [ Yes ] Does the [id number] reflect the multiple launch rocket system crewmember's reported family history? 2. [ No ] Is there a record of the multiple launch rocket system crewmember receiving a syphillis, chlamydia and gonorrhea test since their last PHA? VII. INDIVIDUAL MEDICAL READINESS 1. [ No ] Does the multiple launch rocket system crewmember have an Assignment Limitation Code C? 3. [ No Dental Exam Documented ] Most recently documented dental exam 4. [ Yes ] Is the multiple launch rocket system crewmember current on all required immunizations in the immunization tracking system? 6. Does the multiple launch rocket system crewmember have the following laboratory tests documented in their permanent medical record? [ Yes ] HIV test within the PAST 24 months [ Yes ] G6PD results on file [ Yes ] Blood type and Rh on file [ Yes ] DNA test on file IX. ADDITIONAL RECORD REVIEWER COMMENTS 1. This record review does NOT have a need for provider notification or referral.2. Additional comments about this record review that need to be forwarded to the Health Chiller Operator completing PART C: Member reports that he is in very good health with no pain , no medications and ne new history to repot. Member is in processing from [employer]. Member has nothing more to report. Report complete. Date Record Review Completed: PART C. HEALTH CARE PROVIDER I. MENTAL HEALTH ASSESSMENT (MHA) PROVIDER INFORMATION 1. Last Name: SHANNON 2. First Name: SATURNINO 3. Middle Name: Jodi 4. 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 EMAIL: [email or web address] 8. Facility: [facility] 9. Unit: [facility] 10. Address: [address] [place] [address]. State: [place] 12. Zip Code: [address] 13. 14. Date HCP Review initiated: 1. Member marked that they did not have a concern or a difficulty with a major life stressor. 2. Address concerns identified on member questions 2 and 3. History of mental health care: N/A Member's response: Provider's comments: Medications: N/A Member's response: Provider's comments: 3. Member's AUDIT-C screening score was 0. (nothing required) 4. Member did not fernando yes on two or more of questions 6a through 6e. 5. Member did not fernando More than half the days or nearly every day on question 7a or 7b. 6. Suicide risk evaluation. 6. a. Ask: Over the past month, have you wished you were or wished you could go to sleep and not wake up?: No 6. b. Ask: Have you actually had any thoughts of killing yourself?: No 6. f. 1. Ask: In you lifetime, have you done anything, started to do anything, or prepared to do anything to end your life?: No 6. g. Further risk assessment comments: 7. Member states that they have not had thoughts or concerns over the past month that they might hurt or lose control with someone. 9. Summary of Provider's identified concerns needing referrals: None 11. Comments: 13. Supplemental services recommended/information provided: [facility] Date MHA Certified: III. PERIODIC HEALTH ASSESSMENT (PHA) PROVIDER INFORMATION 1. Last Name: LATISHA 2. First Name: RENÉE 3. Middle Name: Darion 4. 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 Status: [facility] 6. Title: Physician (DO MARGO) 7. EMAIL: [email or web address] 8. Facility: [address] 9. Unit: [address] 10. Address: [address] [place] [address] 11. State: [place] 12. Zip Code: [address] 13. Phone: [phone] 14. Date HCP Review initiated: IV. PERIODIC HEALTH ASSESSMENT PROVIDER RECOMMENDATIONS and REFERRALS 1. Provider concerns with this assessment: No issues or concerns identified V. SUMMARY AND COMMENTS 1. Additional information summarizing findings during the multiple launch rocket system crewmember assessment: 2. Provider Comments: . INDIVIDUAL MEDICAL READINESS DISPOSITION DETERMINATION CARLY: Ready DEN: Not Ready IMM: Ready LAB: Ready ME: Ready IMR Status: Partially Medically Ready VII. SERVICE MEDICAL DEPLOYABILITY EVALUATION INDICATED Based on your review of all documentation, is the multiple launch rocket system crewmember medically deployable without limitations? Reference Betzaida 6490.07 Yes (multiple launch rocket system crewmember DOES NOT currently have a medical condition that limits deployability) Date PHA Completed: END OF [id number] REPORT PROVIDER: Renée Good [facility], [place] SAVANA BERTRAND, SFS Chief, Aerospace Medicine, [address] [place] [address] [email or web address] [facility] Email: 1 [email or web address] COMM: [phone] DSN:[id number] FAX: [phone] Extracted from:Title: [id number] Author: CAROLYN HINSON Date: 04/16/23 1. ARE YOU CURRENTLY: a. B eing treated for an ear infection? No 2. H AVE YOU EVER HAD ANY OF THE FOLLOWING?: a. M eniere s Syndrome, Labyrinthitis, or other chronic disease of the inner ear? No b. R ecurring vertigo in the last year? No c. R ecurring ear infections in last 2 years? No d. R uptured eardrum in the last 2 years? No e. E ar tubes in the last 2 years? No f. Surgery in ear canal, middle or inner ear? No g. U sed a hearing aid or hearing device? 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 Patient s PHAQ responses suggest there WERE NO Priority items requiring immediate action. Retention Waiver: No Profile: No Medications: Medication List Active Medications No Active Medications Found Medications Inactivated in the Last 72 Hours No medications found. 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 NO Completed 09/15/2023 VA Disability Rating: No If yes please update below. Commercial Correspondent Note: Member reports that he is in very good health with no pain , no medications and ne new history to repot. 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 Member has nothing more to report. Report complete. PHAQ ready for PCM review and signature. Addendum by RENÉE GOOD on September 15, 2023 14:09 CDT PHAQ Completed in [facility], [id number] c opied below. Diagnosis is [id number] Medication reconciliation was accomplished. IMR requirements checked in ASIMS (all GREEN) but is due dental General c ounseling performed i n chart review. Denies SI/HI. All questions answered. Member has no n on emergent positive responses on P BEE. I t has not inhibited member from performing their duties. Member is assumed fit for duty. Denies any other acute or chronic health concerns currently. 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 Recommend f/u with PCM for any new or ongoing m edical concerns. 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 Last Name: DAVID 2. First Name: CLARISSA 3. Middle Name: RENÉE 4. Assessment Date: 5. : 6. Age: 18 7. Gender: M 8. Do[employer] ID Number: [id number] 9. Service Branch: [employer] 10. 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 Unit Name: [address] [facility] [address] 14. Duty Station/Location: [place] 15. UIC: [id number] 16. Is this your first Periodic Health Assessment (PHA)?: Y 17. Are you enrolled in a secure messaging system with your health care provider?: 18. Current contact information: Preferred Method: DSN Phone DSN: [id number] Day Time Phone: [phone] Night Time Phone: [phone] Email 1: [email or web address] Email 2: [email or web address] Address: [address] [place] [address] City: [place] State: [place] Zip Code: [address] 19. Point of contact who can always reach you: Name: Wilbert David Phone 1: [phone] Phone 2: EMAIL: Address: [address] [place] [address] City: [place] State: [place] Zip Code: [address] II. DEPLOYMENT INFORMATION (DEP) 1. [ 0 ] Total number of deployments in the PAST 5 YEARS 4. [ N ] Are you going to deploy within the NEXT 120 DAYS? III. 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 [ No ] Does your specialty require an operational duty physical exam? 4. [ No ] Are you currently enrolled in a medical surveillance/occupational health program?: No IV. MEDICAL CONDITIONS (CARLY): 1. Since your last PHA, have you experienced any of the following health conditions, and if so, what is your status? [ ] Conditions with no medical care [ Asthma ] Conditions with medical care, but no longer under treatment [ ] Conditions with medical care, and NOW under treatment 2. Since your last PHA, have you experienced any of the following health conditions, and if so, what is your status? [ ] Conditions with no medical care [ ] Conditions with medical care, but no longer under treatment [ ] Conditions with medical care, and NOW under treatment 3. For any condition marked YES in question 1 or 2, are you currently on any profile or limited duty for that condition? [ ] Conditions 4. [ No ] Have you been based or stationed at a location where an open burn pit was used? 5. [ No ] Have you been exposed to toxic airborne chemicals or other airborne contaminants? 8. Have you had any surgery since your last PHA?: No 10.a. [ No ] Since your last PHA, has a health care provider recommended surgery(s) that you have not had? 11.a. [ No ] Do you currently require hearing aids, special medical supplies, CPAP, adaptive equipment, assistive technology devices, and/or other special accommodations? 12.a. [ No ] Do you have a waiver or profile for any part of your Service's physical fitness test? 13.a. [ No ] Do you have any problems wearing a gas mask, ballistic helmet, body armor, and/or chemical/biological protective garments? 14.a. [ No ] Have you ever been told by a health care provider that you SHOULD NOT receive an immunization for medical reasons? 15.a. [ No ] Do you have a permanent profile or an Assignment Limitation Code C? 16.a. [ No ] Are you on a temporary profile or limited duty? 17. [ 0 ] During the PAST 2 years, how many times have you been placed on a temporary profile or on limited duty? V. INDIVIDUAL MEDICAL READINESS (IMR) 1. [ No ] Do you have any allergies? 3. [ Not required ] Do you have red medical warning dog tags? 4. [ No ] Do you wear corrective lenses? . BEHAVIORAL HEALTH (MHA) 1. a. [ None ] Over the PAST MONTH, what major life stressors have you experienced that are a cause of significant concern or make it difficult for you to do your work, take care of things at home, or get along with other people (for example, serious conflicts with others, relationship problems, or a legal, disciplinary or financial problem)? 2. a. [ No ] In the PAST YEAR did you receive care for any mental health condition or concern such as, but not limited to post traumatic stress disorder (PTSD), depression, anxiety disorder, alcohol abuse or substance abuse? 3. [ None ] What prescription or over-the counter medications (including herbals/supplements) for sleep, pain, combat stress, or a mental health problem are you CURRENTLY taking? 4. a. [ No ] In the past 12 months, have you gambled? 5. a. [ Never ] How often do you have a drink containing alcohol? 6. Have you ever had any experience that was so frightening, horrible, or upsetting that in the PAST MONTH, you: 6. a. [ No ] Have had nightmares about it or thought about it when you did not want to? 6. b. [ No ] Tried hard not to think about it or went out of your way to avoid situations that remind you of it? 6. c. [ No ] Were constantly on guard, watchful or easily startled? 6. d. [ No ] [place] numb or detached from others, activities, or your surroundings? 6. e. [ Not answered ] [place] guilt or unable to stop blaming yourself or others for the event(s) or any problems the event(s) may have caused? 7. Over the LAST 2 WEEKS, how often have you been bothered by the following problems? 7. a. [ Not at all ] Little interest or pleasure in doing things 7. b. [ Not at all ] Feeling down, depressed, or hopeless 8. [ No ] Would you like to schedule an appointment with a health care provider to discuss any health concern(s)? 9. [ No ] Are you interested in receiving information or assistance for a stress, emotional or alcohol concern? 10. [ No ] Are you interested in receiving assistance for a family or relationship concern? 11. [ No ] Would you like to schedule a visit with a cytology supervisor, mental health care provider, or a community support counselor? VII. FAMILY HISTORY AND LIFESTYLE (LIF) 1. [ Excellent ] Overall, how would you rate your health during the PAST MONTH? 2. [ None/Don't Know ] Member indicates that family members have the following problems 6. [ Yes ] I participate in moderate intensity physical activites at least 2.5 hours, or a combination of moderate and vigorous aerobic activites, for at least 75 minutes per week. 7. In a typical week, I do physical activities specifically designed to STRENGTHEN my muscles: [ 6 ] Day(s) per week 8. [ None ] What prescriptions or hxqu-jcd-qdrjcmi medications are you CURRENTLY taking for health problems on a ROUTINE BASIS? 9. Which of the following products have you taken since your last PHA: Protein Supplements/Creatine: Once a day Performance Enhancers/Pre-Workout Products: Once a day Energy Shots, NOT including energy drinks: Less than once a month Multi-Vitamins: Once a day Individual Vitamins or Minerals: Once a day Vitamin D: Less than once a month 11. Think about the PAST 30 DAYS. How often did you eat/drink the following foods/beverages? [ 1 serving per day ] Fruits [ 1 serving per day ] Vegetables [ 1 serving per day ] Starchy Vegetables [ 3 or more servings per day ] Whole Grains [ 3 or more servings per day ] Dairy and Calcium Containing Foods [ 3 to 6 servings per week ] Fish [ 3 or more servings per day ] Lean Protein [ 1 serving per day ] Sugar-Sweetened Beverages 12. [ Yes ] Have you had a cholesterol check by a health healthcare advisory services manager within the PAST 5 YEARS? 13.a. In the PAST 30 DAYS, which of the following products have you used on at least one day? None 15. Which of the following best describes your past tobacco use? I have never used tobacco products. 16. [ No ] Are you regularly exposed to secondhand smoke? 17. [ 7 to 9 hours ] During the LAST 2 WEEKS, how many hours of sleep did you get on most days? 18. [ No ] During the LAST 2 WEEKS, have you felt impaired or unable to adequately perform due to sleepiness or poor quality sleep? 19. [ No ] Have you had any unexplained weight loss or gain since your last PHA? 20. Member is at risk for sexually transmitted infections. 21. [ No ] Have you had a syphillis, chlamydia, and gonorrhea test since your last PHA? 22. Since your last PHA, what, if anything, have you and your partner used to keep from getting ? [ control pills, Emergency contraception, Condoms, Withdrawal ] I am actively taking steps to prevent , including 23. [ No ] In the last year, have you or your partner had a scare, where you were not trying to get but were worried enough to use a home test? IX. RESERVE COMPONENT (RES) 1. [ No ] Do you have an injury, illness, Or disease which was incurred or aggravated while in a duty status since your last PHA? 4. [ Yes - and Other health insurance ] Are you currently coverered under a health insurance policy? 5.a. [No, I have never applied for Worker's Compensation ] Do you have any current physical or mental health limitations related to a Worker's Compensation claim? 6. [ No ] Have you applied for or have you received a VA disability rating? X. OTHER MEDICAL (OTH) 1. [ 0 ] Rate the amount of pain you have had, on average, over the PAST 24 HOURS 3. [ No ] Since your last PHA, have you received care or treatment for any medical and/or mental health condition(s) from a civilian or non- facility? 5. Member acknowledged responsibility for reporting health issues. 7. [ No ] Woud you like to schedule an appointment with a health care provider to discuss any health concerns? XI. SEPARATION AND [facility] 1. [ No ] Are you planning to separate or retire within the next year from Active Duty or [place] Duty (activated for greater than 30 continuous days) OR do you intend to file a claim for disability compensation with the Veterans Benefits Administration? PART B. RECORD REVIEW AND RECOMMENDATIONS I. RECORD REVIEWER INFORMATION 1. Last Name: RANDA 2. First Name: SCOTTY 3. Middle Name: KARI 4. Service Branch: [employer] 5. 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 EMAIL: 8. Facility: [address] [place] [address] 9. Unit: [address] [place] [address] 10. Address: [address] [facility] 11. State: [facility]. Zip Code: [address] 13. 14. Date Record Review: II. MEDICAL SCREENING 1. 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 [ 6 feet 1 inches Date: ] multiple launch rocket system crewmember's most recently documented height 3. [ 215 pounds Date: ] multiple launch rocket system crewmember's most recently documented weight 4. [ 125/64 Date: ] multiple launch rocket system crewmember's most recently documented blood pressure reading 5. [ No ] Does the multiple launch rocket system crewmember have a history of abnormal blood pressure since their last PHA? 6. [ Yes ] Does the multiple launch rocket system crewmember have a laboratory test of sickle cell trait documented in their permanent medical record? 7. [ No Cholesterol Test Documented ] What is the date of the multiple launch rocket system crewmember's most recently documented cholesterol test? 9. 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 [ No ] Is there a discrepancy between the active medication record review and the multiple launch rocket system crewmember's self-reported list of medications? 11. [ No Outside Care Documented ] List documented significant care the multiple launch rocket system crewmember has received since their last PHA from a provider OUTSIDE the Health System 12. [ No ] Is there a discrepancy between the multiple launch rocket system crewmember's list of OUTSIDE care (from OT5), and the OUTSIDE care found in the record? 13. [ No Inside Care Documented ] List documented significant care the multiple launch rocket system crewmember has received since their last PHA from a provider INSIDE the Health System 15. [ Not Answered ] Confirm that vaccine exemptions are listed in the medical record for each vaccine listed IV. FAMILY HISTORY AND LIFESTYLE 1. [ Yes ] Does the [id number] reflect the multiple launch rocket system crewmember's reported family history? 2. [ No ] Is there a record of the multiple launch rocket system crewmember receiving a syphillis, chlamydia and gonorrhea test since their last PHA? VII. INDIVIDUAL MEDICAL READINESS 1. [ No ] Does the multiple launch rocket system crewmember have an Assignment Limitation Code C? 3. [ No Dental Exam Documented ] Most recently documented dental exam 4. [ Yes ] Is the multiple launch rocket system crewmember current on all required immunizations in the immunization tracking system? 6. Does the multiple launch rocket system crewmember have the following laboratory tests documented in their permanent medical record? [ Yes ] HIV test within the PAST 24 months [ Yes ] G6PD results on file [ Yes ] Blood type and Rh on file [ Yes ] DNA test on file IX. ADDITIONAL RECORD REVIEWER COMMENTS 1. This record review does NOT have a need for provider notification or referral.2. Additional comments about this record review that need to be forwarded to the Health Chiller Operator completing PART C: Member reports that he is in very good health with no pain , no medications and ne new history to repot. Member is in processing from [employer]. Member has nothing more to report. Report complete. Date Record Review Completed: PART C. HEALTH CARE PROVIDER I. MENTAL HEALTH ASSESSMENT (MHA) PROVIDER INFORMATION 1. Last Name: SHANNON 2. First Name: SATURNINO 3. Middle Name: Jodi 4. 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 EMAIL: [email or web address] 8. Facility: [facility] 9. Unit: [facility] 10. Address: [address] [place] [address]. State: [place] 12. Zip Code: [address] 13. 14. Date HCP Review initiated: 1. Member marked that they did not have a concern or a difficulty with a major life stressor. 2. Address concerns identified on member questions 2 and 3. History of mental health care: N/A Member's response: Provider's comments: Medications: N/A Member's response: Provider's comments: 3. Member's AUDIT-C screening score was 0. (nothing required) 4. Member did not fernando yes on two or more of questions 6a through 6e. 5. Member did not fernando More than half the days or nearly every day on question 7a or 7b. 6. Suicide risk evaluation. 6. a. Ask: Over the past month, have you wished you were or wished you could go to sleep and not wake up?: No 6. b. Ask: Have you actually had any thoughts of killing yourself?: No 6. f. 1. Ask: In you lifetime, have you done anything, started to do anything, or prepared to do anything to end your life?: No 6. g. Further risk assessment comments: 7. Member states that they have not had thoughts or concerns over the past month that they might hurt or lose control with someone. 9. Summary of Provider's identified concerns needing referrals: None 11. Comments: 13. Supplemental services recommended/information provided: [facility] Date [employer] Certified: III. PERIODIC HEALTH ASSESSMENT (PHA) PROVIDER INFORMATION 1. Last Name: LATISAH 2. First Name: RENÉE 3. Middle Name: Darion 4. 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 Title: Physician (DO MARGO) 7. EMAIL: [email or web address] 8. Facility: [address] 9. Unit: [address] 10. Address: [address] [place] [address] 11. State: [place] 12. Zip Code: [address] 13. Phone: [phone] 14. Date HCP Review initiated: IV. PERIODIC HEALTH ASSESSMENT PROVIDER RECOMMENDATIONS and REFERRALS 1. Provider concerns with this assessment: No issues or concerns identified V. SUMMARY AND COMMENTS 1. Additional information summarizing findings during the multiple launch rocket system crewmember assessment: 2. Provider Comments: . INDIVIDUAL MEDICAL READINESS DISPOSITION DETERMINATION CARLY: Ready DEN: Not Ready IMM: Ready LAB: Ready ME: Ready IMR Status: Partially Medically Ready VII. SERVICE MEDICAL DEPLOYABILITY EVALUATION INDICATED Based on your review of all documentation, is the multiple launch rocket system crewmember medically deployable without limitations? Reference [facility] 6490.07 Yes (multiple launch rocket system crewmember DOES NOT currently have a medical condition that limits deployability) Date PHA Completed: END OF [id number] REPORT PROVIDER: Renée Good, [place], [place] SAVANA BERTRAND, SFS Chief, Aerospace Medicine, [facility] [employer] Email: 1 [email or web address] COMM: [phone] DSN:[id number] FAX: [phone] Extracted from:Title: [id number] Author: CAROLYN HINSON Date: 04/16/23 1. ARE YOU CURRENTLY: a. B eing treated for an ear infection? No 2. H AVE YOU EVER HAD ANY OF THE FOLLOWING?: a. M eniere s Syndrome, Labyrinthitis, or other chronic disease of the inner ear? No b. R ecurring vertigo in the last year? No c. R ecurring ear infections in last 2 years? No d. R uptured eardrum in the last 2 years? No e. E ar tubes in the last 2 years? No f. Surgery in ear canal, middle or inner ear? No g. U sed a hearing aid or hearing device? No Extracted from:Title: Education Note Author: BOBBY GAMBOA Date: 08/14/22 08/17/2024 [id number] Functional Status Combined list of recent functional and cognitive assessments recorded at Department of Defense and Veterans Affairs (VA).VA Functional Dupage Measurement (FIM) Scale: 1 = Total Assistance (Subject = 0% +), 2 = Maximal Assistance (Subject = 25% +), 3 = Moderate Assistance (Subject = 50% +), 4 = Minimal Assistance (Subject = 75% +), 5 = Supervision, 6 = Modified Dupage (Device), 7 = Complete Dupage (Timely, Safely). Assessment Date/Time Source Assessment Type Assessment Skill Assessment Score Assessment Details No data available for this section
[2024-08-17 13:25] VITALS: BP 154/81; PULSE 71; RESP 16; TEMP 36.6; O2SAT 100
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
== END 2024-08-17 16:10 | disposition home or self-care (01) ==
LOC: ANHED 15:51
PROVIDERS: Emergency Provider Emergency Medicine
DX: S16.1XXA Strain of muscle, fascia and tendon at neck level, initial encounter (principal); V89.2XXA Person injured in unspecified motor-vehicle accident, traffic, initial encounter
CPT/HCPCS: 99282